=== PATIENT | male | born 1960 | race Two or more races ===

== ENCOUNTER 2021-08-17 14:08 | Emergency (ER) | payer SELFPAY ==
[2021-08-17 14:21] VITALS: BMI 29.1
[2021-08-17 15:18] LABS: BASO % 0.8 % (0-2.0); EOS % 2.8 % (0-4.5); HEMOGLOBIN 14.2 GM/dL (11.7-16.9); LYMPH % 29.2 % (8-40); MCH 28.6 pg (25.7-33.7); MCHC 33.2 g/dl (32.0-35.9); MEAN CELL VOLUME 86.2 fl (80-96); MEAN PLT VOLUME 8.5 fl (7.5-11.1); MONO % 6.8 % (3.8-10.2); NEUT % 60.4 % (42.8-82.8); PLATELET COUNT 238 10^3/uL (134-434); RBC 4.98 M/mm3 (4.00-5.60); RDW 13.3 % (11.9-15.9); WHITE BLOOD COUNT 6.2 K/mm3 (4.0-10.0)
[2021-08-17 15:42] LABS: ALBUMIN 3.8 g/dl (3.4-5.0); BLOOD UREA NITROGEN 16.6 mg/dL (7-18); CALCIUM 9.1 mg/dL (8.5-10.1)
[2021-08-17 15:45] LABS: CREATININE 1.2 mg/dL (0.55-1.3)
[2021-08-17 15:47] LABS: BILIRUBIN,TOTAL 1.4 mg/dL (0.2-1); TOT PROT 7.6 g/dl (6.4-8.2)
[2021-08-17 18:01] VITALS: BP 162/88; PULSE 66; TEMP 98.4
== END 2021-08-17 18:01 | disposition home or self-care (01) ==
LOC: JER 14:08
DX: L02.32 Furuncle of buttock (principal); I10 Essential (primary) hypertension; K62.89 Other specified diseases of anus and rectum
CPT/HCPCS: 36415; 74177-TC; 80053; 82962; 85025; 87040; 99285-25; Q9967

== ENCOUNTER 2021-11-05 21:38 | Emergency (ER) | payer OTHER ==
[2021-11-05 21:52] VITALS: TEMP 98.1; BMI 31.8
[2021-11-05] MEDS ORDERED: DEXAMETHASONE SOD PHOSPHATE 10 MG/1 ML VIAL IVPUSH ONE (23:40)
[2021-11-05] MEDS ORDERED: amLODIPine BESYLATE 5 MG TABLET (FP) PO ONE (23:42)
[2021-11-05] MEDS ORDERED: amLODIPine BESYLATE 10 MG TABLET (FP) ONE (23:46)
[2021-11-05] MEDS ORDERED: DEXAMETHASONE SOD PHOSPHATE 10 MG/1 ML VIAL ONE (23:46)
[2021-11-06 00:15] LABS: BASO % 0.6 % (0-2.0); EOS % 1.9 % (0-4.5); HEMATOCRIT 46.5 % (35.4-49); HEMOGLOBIN 15.3 GM/dL (11.7-16.9); LYMPH % 18.2 % (8-40); MCH 28.1 pg (25.7-33.7); MCHC 32.8 g/dl (32.0-35.9); MEAN CELL VOLUME 85.8 fl (80-96); MEAN PLT VOLUME 8.5 fl (7.5-11.1); MONO % 7.8 % (3.8-10.2); NEUT % 71.5 % (42.8-82.8); PLATELET COUNT 283 10^3/uL (134-434); RBC 5.43 M/mm3 (4.00-5.60); RDW 13.6 % (11.9-15.9); WHITE BLOOD COUNT 13.4 K/mm3 (4.0-10.0)
[2021-11-06 00:43] LABS: CALCIUM 9.2 mg/dL (8.5-10.1)
[2021-11-06 00:44] LABS: BLOOD UREA NITROGEN 11.8 mg/dL (7-18)
[2021-11-06 00:49] LABS: BILIRUBIN,TOTAL 0.6 mg/dL (0.2-1); TOT PROT 8.4 g/dl (6.4-8.2)
[2021-11-06 01:51] LABS: PH,URINE 5.5 (5.0-8.0); URINE APPEARANCE CLEAR; URINE BILIRUBIN NEGATIVE (NEGATIVE); URINE COLOR YELLOW; URINE GLUCOSE (UA) NEGATIVE (NEGATIVE); URINE KETONE NEGATIVE (NEGATIVE); URINE LEUK ESTERASE NEGATIVE (NEGATIVE); URINE NITRITE NEGATIVE (NEGATIVE); URINE PROTEIN NEGATIVE (NEGATIVE); URINE UROBILINOGEN 0.2 mg/dL (0.2-1.0)
[2021-11-06 01:59] VITALS: BP 141/88
[2021-11-06 02:34] VITALS: PULSE 91
[2021-11-06] MEDS ORDERED: ACETAMINOPHEN 325 MG TABLET (FP) PO ONE (02:58)
[2021-11-06] MEDS ORDERED: ACETAMINOPHEN 325 MG TABLET (FP) ONE (03:01)
== END 2021-11-06 03:17 | disposition home or self-care (01) ==
LOC: JER 21:38
PROC: 3E033GC Introduction of Other Therapeutic Substance into Peripheral Vein, Percutaneous Approach (ICD-10-PCS; principal; 2021-11-05)
DX: J02.9 Acute pharyngitis, unspecified (principal); I10 Essential (primary) hypertension
CPT/HCPCS: 36415; 70360-TC-FY; 80053; 81003; 82962; 85025; 87086; 87651; 93005; 93010; 99285-25; J1100